=== PATIENT | male | born 1965 | race Caucasian/White ===

== ENCOUNTER 2023-07-26 20:03 | Emergency (ER) | payer OTHER ==
[~2023-07-26] VITALS: Ht 180.3 cm; Wt 81.6 kg
[2023-07-26 20:42] LABS: BASOPHILS # (AUTO) 0.1 K/UL (0.0-0.2); BASOPHILS % (AUTO) 0.8 % (0.0-2.0); DIFFERENTIAL COMMENT 1; EOSINOPHILS # (AUTO) 0.2 K/uL (0.0-0.7); EOSINOPHILS % (AUTO) 2.4 % (0.0-7.0); HEMATOCRIT 40.5 % (36.7-47.1); HEMOGLOBIN 13.8 g/dL (12.5-16.3); LYMPHOCYTES # (AUTO) 1.5 K/uL (0.8-4.8); LYMPHOCYTES % (AUTO) 17.4 % (20.5-51.5); MEAN CORPUSCULAR HEMOGLOBIN 30.7 uug (23.8-33.4); MEAN CORPUSCULAR HGB CONC 34 g/dL (32.5-36.3); MEAN CORPUSCULAR VOLUME 89.9 fL (73.0-96.2); MONOCYTES # (AUTO) 0.6 K/uL (0.1-1.30); MONOCYTES % (AUTO) 7.3 % (0.0-11.0); NEUTROPHILS # (AUTO) 6.4 K/uL (1.8-8.9); NEUTROPHILS % (AUTO) 72.1 % (38.5-71.5); PLATELET COUNT (AUTO) 354 K/uL (152-348); RED BLOOD CELL COUNT(AUTO) 4.51 MIL/uL (4.06-5.63); RED CELL DISTRIBUTION WIDTH 13.2 % (12.1-16.2); WHITE BLOOD COUNT (AUTO) 8.9 K/uL (3.6-10.2)
[2023-07-26 20:49] LABS: CREATININE 1.2 mg/dL (0.6-1.3); POTASSIUM 3.8 mmol/L (3.5-5.1)
[2023-07-26 20:55] LABS: ALBUMIN 3.1 g/dL (3.4-5.0); BILIRUBIN,DIRECT 0.1 mg/dL (0.0-0.2); BILIRUBIN,TOTAL 0.4 mg/dL (0.2-1.0); TOTAL PROTEIN, SERUM 6.7 g/dL (6.4-8.2)
[2023-07-26] MEDS ORDERED: IOHEXOL 300MG/ML 100 ML INFUS..BTL ONE (21:11)
[2023-07-26] MEDS ORDERED: SWABABLE VALVE TRANSFER SET EA MC ONE (21:12)
[2023-07-26] MEDS ORDERED: IV NORMAL SALINE 250 ML IV ONE (21:13)
[2023-07-26] MEDS ORDERED: HYDR-3974 PO (22:30)
[2023-07-26 22:46] VITALS: BP 134/77; O2SAT 99
== END 2023-07-26 22:54 | disposition home or self-care (01) ==
LOC: ER 20:03
DX: S22.41XA Multiple fractures of ribs, right side, initial encounter for closed fracture (principal); F17.210 Nicotine dependence, cigarettes, uncomplicated; Z88.0 Allergy status to penicillin; W18.39XA Other fall on same level, initial encounter; Y93.89 Activity, other specified; Y92.89 Other specified places as the place of occurrence of the external cause; Y99.8 Other external cause status
CPT/HCPCS: 99285; 71260; 80076; 80048; 83690; 85025; 36415; 71101; 74177; Q9967; A4663

== ENCOUNTER 2024-01-22 12:02 | Emergency (ER) | payer OTHER ==
[~2024-01-22] VITALS: Ht 180.3 cm; Wt 79.4 kg
[~2024-01-22 12:02] MED LIST: HYDR-3974 PO
[2024-01-22 12:13] VITALS: O2SAT 98
[2024-01-22] MEDS ORDERED: IBUP-1957 PO (15:56)
[2024-01-22] MEDS ORDERED: HYDR-3976 PO (15:56)
== END 2024-01-22 16:12 | disposition home or self-care (01) ==
LOC: ER 12:02
DX: S49.82XA Other specified injuries of left shoulder and upper arm, initial encounter (principal); M54.2 Cervicalgia; F17.200 Nicotine dependence, unspecified, uncomplicated; Z79.899 Other long term (current) drug therapy; Z88.0 Allergy status to penicillin; Z88.1 Allergy status to other antibiotic agents; X58.XXXA Exposure to other specified factors, initial encounter; Y93.89 Activity, other specified; Y92.89 Other specified places as the place of occurrence of the external cause; Y99.8 Other external cause status
CPT/HCPCS: 72125; 73030; A4606; A4663

== ENCOUNTER 2025-10-26 13:37 | Emergency (ER) | payer OTHER ==
[~2025-10-26] VITALS: Ht 175.3 cm; Wt 74.8 kg
[~2025-10-26 13:37] MED LIST changes: +HYDR-3976 PO; +IBUP-1957 PO
[2025-10-26 13:44] VITALS: BP 130/85
[2025-10-26] MEDS: LIDOCAINE HCL 1% 20 ML VIAL IJ ONE (13:56)
[2025-10-26] MEDS ORDERED: CLIN-188 PO (13:57)
[2025-10-26 14:35] VITALS: BP 125/71; O2SAT 97
[2025-10-26] MEDS ORDERED: LIDOCAINE HCL 1% 20 ML VIAL ONE (14:37)
[2025-10-26] MEDS ORDERED: MUPI15CR TP (14:39)
== END 2025-10-26 14:36 | disposition home or self-care (01) ==
LOC: ER 13:37
DX: L02.212 Cutaneous abscess of back [any part, except buttock and flank] (principal); I51.9 Heart disease, unspecified; F17.210 Nicotine dependence, cigarettes, uncomplicated; Z88.0 Allergy status to penicillin
CPT/HCPCS: A4606; A4663; J3490